=== PATIENT | female | born 1995 | race Caucasian/White ===

== ENCOUNTER 2016-11-23 07:26 | Emergency (ER) | payer BC ==
[~2016-11-23] VITALS: Ht 167.6 cm; Wt 57.0 kg
[2016-11-23 07:27] VITALS: BP 122/86; PULSE 64; RESP 20; TEMP 97.6; O2SAT 100
[2016-11-23 07:36] VITALS: BP 111/63; PULSE 62; RESP 18; O2SAT 99
[2016-11-23] MEDS ORDERED: SODIUM CHLORIDE 0.9% FLUSH 5 ML FLUSH IVF PRN (07:45)
[2016-11-23] MEDS ORDERED: KETOROLAC TROMETHAMINE 30 MG/ML (IVP) VIAL IVP ONE (07:45)
--- NOTE | 2016-11-23 08:02 | PD ---
HPI Chief Complaint: Abdominal Pain Time Seen by Provider: 07:38 Travel History International Travel<30 days: No Contact w/Intl Traveler<30days: No Traveled to known affect area: No History of Present Illness HPI Patient is a 21-year-old female presents emergency department with complaint of abdominal pain. At approximately 5 AM this morning, 2.5 hours prior to arrival patient develop. Umbilical abdominal pain. This is cramping and comes in waves. Patient is symptom-free at this time. She denies any nausea, vomiting, fevers or chills. She notes 3 weeks of intermittent loose stools, no hematochezia. She denies any urinary symptoms. Last menstrual period 2 weeks ago, typical for her. Patient works at [employer], but has not eaten any other food recently. [facility] Past Medical History Medical History: Denies Significant Hx ?: Not LMP: 2 weeks ago Past Surgical History Other Surgery: Yes (right hand) Social History Alcohol Use: No Tobacco Use: No Allergies-Medications (Allergen,Severity, Reaction): Coded Allergies: Penicillin (Verified Allergy, Severe, 11/23/16) Reported Meds & Prescriptions Reported Meds & Active Scripts Active No Active Prescriptions or Reported Medications Review of Systems Except as stated in HPI: all other systems reviewed are Neg Physical Exam Narrative GENERAL: Well-appearing female in no acute distress SKIN: Warm and dry. HEAD: Normocephalic. EYES: No scleral icterus. No injection or drainage. ENT: Mucous membranes pink and moist. NECK: Supple CARDIOVASCULAR: Regular rate and rhythm. RESPIRATORY: No accessory muscle use. GASTROINTESTINAL: Abdomen soft, non-tender, nondistended. Hepatic and splenic margins not palpable. No CVA tenderness MUSCULOSKELETAL: Moves all extremity's normally, normal gait NEUROLOGICAL: Awake and alert. Normal speech. PSYCHIATRIC: Appropriate mood and affect; insight and judgment normal. Data Data Last Documented VS Vital Signs Date Time Temp Pulse Resp B/P Pulse Ox O2 Delivery O2 Flow Rate FiO2 11/23/16 07:40 18 11/23/16 07:36 62 111/63 99 11/23/16 07:27 97.6 Room Air Orders Complete Blood Count With Diff (11/23/16 07:43) Comprehensive Metabolic Panel (11/23/16 07:43) Lipase (11/23/16 07:43) Urinalysis - C+S If Indicated (11/23/16 07:43) Iv Access Insert/Monitor (11/23/16 07:43) Sodium Chloride 0.9% Flush (Ns Flush) (11/23/16 07:45) Ketorolac Inj (Toradol Inj) (11/23/16 07:45) Ed Urine Pregnancytest Poc (11/23/16 07:43) Labs Laboratory Tests Test 11/23/16 07:52 White Blood Count 3.8 TH/MM3 Red Blood Count 4.59 MIL/MM3 Hemoglobin 10.6 GM/DL Hematocrit 33.6 % Mean Corpuscular Volume 73.2 FL Mean Corpuscular Hemoglobin 23.1 PG Mean Corpuscular Hemoglobin 31.6 % Concent Red Cell Distribution Width 15.7 % Platelet Count 206 TH/MM3 Mean Platelet Volume 8.4 FL Neutrophils (%) (Auto) 56.7 % Lymphocytes (%) (Auto) 30.3 % Monocytes (%) (Auto) 9.4 % Eosinophils (%) (Auto) 2.6 % Basophils (%) (Auto) 1.0 % Neutrophils # (Auto) 2.2 TH/MM3 Lymphocytes # (Auto) 1.2 TH/MM3 Monocytes # (Auto) 0.4 TH/MM3 Eosinophils # (Auto) 0.1 TH/MM3 Basophils # (Auto) 0.0 TH/MM3 CBC Comment AUTO DIFF Differential Comment AUTO DIFF CONFIRMED Ovalocytes 1+ Urine Color COLORLESS Urine Turbidity CLEAR Urine pH 6.0 Urine Specific [place] 1.004 Urine Protein NEG mg/dL Urine Glucose (UA) NEG mg/dL Urine Ketones NEG mg/dL Urine Occult Blood NEG Urine Nitrite NEG Urine Bilirubin NEG Urine Urobilinogen LESS THAN 2.0 MG/DL Urine Leukocyte Esterase SMALL Urine RBC 1 /hpf Urine WBC 1 /hpf Urine Squamous Epithelial 3 /hpf Cells Urine Bacteria FEW /hpf Microscopic Urinalysis Comment CULT NOT INDICATED Sodium Level 139 MEQ/L Potassium Level 4.4 MEQ/L Chloride Level 109 MEQ/L Carbon Dioxide Level 23.4 MEQ/L Anion Gap 7 MEQ/L Blood Urea Nitrogen 8 MG/DL Creatinine 0.62 MG/DL Estimat Glomerular Filtration 123 ML/MIN Rate Random Glucose 101 MG/DL Calcium Level 8.7 MG/DL Total Bilirubin 0.3 MG/DL Aspartate Amino Transf 15 U/L (AST/SGOT) Alanine Aminotransferase 21 U/L (ALT/SGPT) Alkaline Phosphatase 55 U/L Total Protein 7.2 GM/DL Albumin 3.9 GM/DL Lipase 113 U/L [facility] Medical Decision Making Medical Screen Exam Complete: Yes Emergency Medical Condition: Yes Medical Record Reviewed: Yes Differential Diagnosis 21-year-old healthy female here with intermittent periumbilical abdominal cramping 2.5 hours, with 2-3 weeks of intermittent loose stools. Differential includes gastroenteritis, colitis, less likely diverticulitis, / ectopic , UTI. Abdominal examination is benign and given her waxing and waning symptoms peritoneal pathology is less likely. Narrative Course Patient placed on monitor, IV established and blood obtained. Given 30 mg Toradol. CBC, CMP, lipase, urinalysis and urine test obtained and unremarkable. Patient felt improved and will be discharged home with Bentyl. Diagnosis Primary Impression: Abdominal pain Qualified Code: R10.33 - Periumbilical abdominal pain Additional Impression: Diarrhea Qualified Code: R19.7 - Diarrhea, unspecified type Referrals: Primary Care Physician as needed Patient Instructions: Abdominal Pain (ED), Acute Diarrhea (GEN), General Instructions Additional Instructions: Bentyl as needed for abdominal pain return to the ER for the warning signs discussed and follow-up with PCP if symptoms persist. Med/Other Pt SpecificInfo: Prescription(s) given Scripts Dicyclomine (Bentyl)20 Mg Tab20 Mg PO TID PRN (Bowel Management) #20 TAB Ref 0 Prov:Radha Hylton MD 11/23/16 Disposition: 01 DISCHARGE HOME Condition: Stable Radha Hylton MD Nov 23, 2016 08:02
[2016-11-23 08:04] LABS: AUTOMATED NEUTROPHIL # 2.2 TH/MM3 (1.8-7.7); EOSINOPHIL # 0.1 TH/MM3 (0-0.4); EOSINOPHIL % 2.6 % (0.0-4.0); HEMATOCRIT 33.6 % (35.0-46.0); LYMPH % 30.3 % (9.0-44.0); LYMPHOCYTE # 1.2 TH/MM3 (1.0-4.8); MEAN CELL VOLUME 73.2 FL (80.0-100.0); MEAN CORPUSCULAR HEMOGLOBIN 23.1 PG (27.0-34.0); MEAN CORPUSCULAR HGB CONC 31.6 % (32.0-36.0); MONO % 9.4 % (0.0-8.0); NEUT % 56.7 % (16.0-70.0); PLATELET COUNT 206 TH/MM3 (150-450); RED BLOOD COUNT 4.59 MIL/MM3 (4.00-5.30); RED CELL DISTRIBUTION WIDTH 15.7 % (11.6-17.2); WHITE BLOOD COUNT 3.8 TH/MM3 (4.0-11.0)
[2016-11-23 08:06] LABS: HEMO FLAGS AUTO DIFF
[2016-11-23 08:16] LABS: BACTERIA, URINE FEW /hpf; BLOOD, URINE NEG (NEG); COMMENT (UR) CULT NOT INDICATED; CULTURE IF INDICATED CULT NOT INDICATED; GLUCOSE,URINE NEG (NEG); KETONE, URINE NEG (NEG); NITRITE,URINE NEG (NEG); SQUAMOUS EPITHELIAL CELL URINE 3 /hpf (0-5); URINE COLOR COLORLESS (YELLW/STRAW)
[2016-11-23 08:24] LABS: ANION GAP 7 MEQ/L (5-15); AST (GOT) 15 U/L (16-38); BICARBONATE 23.4 MEQ/L (21.0-32.0); BLOOD UREA NITROGEN 8 MG/DL (7-18); CHLORIDE 109 MEQ/L (98-107); GLOMERULAR FILTRATION RATE 123 ML/MIN (>89); POTASSIUM 4.4 MEQ/L (3.5-5.1); SODIUM (NA) 139 MEQ/L (136-145)
[2016-11-23 08:27] LABS: ALKALINE PHOSPHATASE 55 U/L (45-117); ALT (GPT) 21 U/L (9-42); TOTAL BILIRUBIN ADULT 0.3 MG/DL (0.2-1.0)
[2016-11-23 08:40] LABS: OVALOCYTES 1+ (NORMAL); SCAN/DIFF AUTO DIFF CONFIRMED
[2016-11-23] MEDS ORDERED: BENT20TA PO (10:26)
== END 2016-11-23 11:00 | disposition home or self-care (01) ==
LOC: NEPE 07:26
DX: R10.9 Unspecified abdominal pain (principal); R19.7 Diarrhea, unspecified; Z88.0 Allergy status to penicillin
CPT/HCPCS: 80053; 81001; 83690; 84703; 85025; 96374; 99284; J1885